=== PATIENT | female | born 1950 | race Caucasian/White ===

== ENCOUNTER → 2018-03-15 | Outpatient (CLI) | payer MEDICARE | END | disposition home or self-care (01) | LOC: NM 07:57 | DX: Z47.1 Aftercare following joint replacement surgery (principal); Z96.653 Presence of artificial knee joint, bilateral | CPT/HCPCS: 78315; 96374; A9503 ==

== ENCOUNTER → 2018-03-19 | Outpatient (CLI) | payer MEDICARE, BC ==
[2018-03-19 15:14] LABS: C-REACTIVE PROTEIN 1.9 mg/L (0-3.3)
[2018-03-19 17:05] LABS: SEDIMENTATION RATE 12 (0-25)
== END | disposition home or self-care (01) ==
LOC: LAB 14:33
DX: T84.092A Other mechanical complication of internal right knee prosthesis, initial encounter (principal)
CPT/HCPCS: 36415; 85651; 86140